=== PATIENT | male | born 1990 | race Hispanic/Latino ===

== ENCOUNTER → 2024-03-20 | Outpatient (REF) | payer SELFPAY ==
[~2024-03-20] MED LIST: LIDOCAINE VISC 2% SOLN 15 ML UDC ONE; LIDOCAINE/PRILOCAINE 2.5-2.5% KIT ONE
== END ==
LOC: WCC 11:08
PROVIDERS: ATTEND Nurse Practitioner Family
DX: T81.321D Disruption or dehiscence of closure of internal operation (surgical) wound of abdominal wall muscle or fascia, subsequent encounter (principal)

== ENCOUNTER → 2024-03-27 | Outpatient (REF) | payer SELFPAY | LOC: WCC 10:03 | PROVIDERS: ATTEND Nurse Practitioner Family | DX: T81.321D Disruption or dehiscence of closure of internal operation (surgical) wound of abdominal wall muscle or fascia, subsequent encounter (principal) ==

== ENCOUNTER → 2024-04-05 | Outpatient (REF) | payer SELFPAY | LOC: WCC 08:00 | PROVIDERS: ATTEND Nurse Practitioner Family | DX: T81.321D Disruption or dehiscence of closure of internal operation (surgical) wound of abdominal wall muscle or fascia, subsequent encounter (principal) ==